=== PATIENT | female | born 1985 | race Caucasian/White ===

== ENCOUNTER 2017-01-29 13:16 | Emergency (ER) | payer OTHER ==
[~2017-01-29] VITALS: Ht 162.6 cm; Wt 55.0 kg
[~2017-01-29 13:16] MED LIST: AUGMENTIN500 MG PO; CLARITIN,ALAVAR10 MG PO; FLEXERIL10 MG PO; FLONASE16 G1 BOTH NARES; GABAPENTIN100 MG PO; LEVAQUIN250 MG PO; LYRICA75 MG PO; MELOXICAM15 MG PO; MOBIC7.5 MG PO; MOTRIN IB200 MG PO; MOTRIN600 MG PO; MOTRIN800 MG PO; MUCINEX D ER T1 EACH PO; Motrin PO; NOHOMEMEDS; NORCO 5/3251 TABLET PO; Natalcare Rx,Pramile PO; PREDNISONE20 MG PO; PRENATAL1 EACH; Percocet 5/325,Endoc PO; TESSALON PERLE100 MG PO; TRAMADOL HCL50 MG PO; ZOFRAN ODT8 MG PO
[2017-01-29 14:34] LABS: HEMATOCRIT 43.9 % (36.0-46.0); MCH 31.7 PG (29.0-34.0); MCHC 34.4 G/DL (30.0-36.0); MCV 92.2 FL (83-99); MEAN PLAT.VOLUME 10.9 uM^3 (9.5-12.4); PLATELET COUNT 227 K/uL (156-360); RBC DIS.WIDTH-SD 40.7 % (39-53); RED BLOOD COUNT 4.76 M/uL (3.80-5.20); WHITE BLOOD COUNT 9.4 K/uL (4.1-10.2)
[2017-01-29 14:44] LABS: CHLORIDE 106 mEq/L (99-109); POTASSIUM 4.1 mEq/L (3.7-5.4); SODIUM 140 mEq/L (136-147)
[2017-01-29 14:46] LABS: GLUCOSE 83 mg/dL (70-99)
[2017-01-29 14:47] LABS: ANION GAP 8 MEQ/L (2-14)
[2017-01-29 14:48] LABS: TOTAL BILIRUBIN 0.5 mg/dL (0.0-1.0)
[2017-01-29 14:49] LABS: ALKALINE PHOSPHATASE 77 IU/L (3-129)
[2017-01-29 14:50] LABS: GFR ESTIMATE (CALCULATED) > 59 mL/min/
[2017-01-29 14:51] LABS: UREA NITROGEN (BUN) 5 mg/dL (9-23)
[2017-01-29 14:53] LABS: LIPASE 9 U/L (1.0-51.0)
[2017-01-29 14:56] LABS: ADD MIUA? YES; BILIRUBIN NEGATIVE; BLOOD MODERATE; COLOR YELLOW ((YELLOW)); GLUCOSE (STRIP) NEGATIVE; KETONES NEGATIVE; LEUKOCYTES NEGATIVE; NITRITE NEGATIVE; PROTEIN (STRIP) NEGATIVE; SPECIFIC GRAVITY 1.012 (1.000-1.030); UROBILINOGEN 0.2 MG/DL (0.2-1.0)
[2017-01-29 14:59] LABS: QUANTITATIVE HCG < 4.0 MIU/ML
[2017-01-29 15:01] LABS: BACTERIA RARE /HPF; EPITHELIAL CELLS 2+ /HPF; MUCUS TRACE /LPF; RED BLOOD CELLS 0-5 /HPF (0-5); UCUL ADDED? NO; WHITE BLOOD CELLS 0-5 /HPF (0-5)
[2017-01-29] MEDS ORDERED: MOTRIN800 MG PO (15:16)
[2017-01-29] MEDS ORDERED: ZOFRAN ODT4 MG PO (15:16)
[2017-01-29 15:32] VITALS: BP 130/84
== END 2017-01-29 15:33 | disposition home or self-care (01) ==
LOC: EME 13:16
DX: R31.9 Hematuria, unspecified (principal); R10.9 Unspecified abdominal pain; R11.2 Nausea with vomiting, unspecified; R51 Headache; R68.83 Chills (without fever); F17.200 Nicotine dependence, unspecified, uncomplicated
CPT/HCPCS: 80053; 81003; 83690; 84702; 85027; 87086; 99281; 99283

== ENCOUNTER 2017-06-26 09:58 | Emergency (ER) | payer SELFPAY ==
[~2017-06-26] VITALS: Ht 162.6 cm; Wt 55.7 kg
[~2017-06-26 09:58] MED LIST changes: +ZOFRAN ODT4 MG PO
[2017-06-26 10:13] VITALS: BP 114/73
[2017-06-26 10:34] LABS: HEMATOCRIT 41.6 % (36.0-46.0); HEMOGLOBIN 14.4 G/DL (11.9-15.5); MCH 32.2 PG (29.0-34.0); MCHC 34.6 G/DL (30.0-36.0); MCV 93.1 FL (83-99); PLATELET COUNT 230 K/uL (156-360); RBC DIS.WIDTH-CV 12.6 % (11.8-14.6); RBC DIS.WIDTH-SD 43.3 % (39-53); RED BLOOD COUNT 4.47 M/uL (3.80-5.20); WHITE BLOOD COUNT 9.4 K/uL (4.1-10.2)
[2017-06-26 10:53] LABS: CHLORIDE 110 mEq/L (99-109); POTASSIUM 3.9 mEq/L (3.7-5.4); SODIUM 139 mEq/L (136-147)
[2017-06-26 10:54] LABS: GLUCOSE 105 mg/dL (70-99)
[2017-06-26 10:58] LABS: CREATININE 0.7 mg/dL (0.6-1.3); GFR ESTIMATE (CALCULATED) > 59 mL/min/
[2017-06-26 10:59] LABS: UREA NITROGEN (BUN) 8 mg/dL (9-23)
== END 2017-06-26 13:09 | disposition left against medical advice (07) ==
LOC: EME 09:58
DX: R05 Cough (principal); R07.9 Chest pain, unspecified; Z53.21 Procedure and treatment not carried out due to patient leaving prior to being seen by health care provider
CPT/HCPCS: 71046; 80048; 85027

== ENCOUNTER 2017-10-16 17:20 | Emergency (ER) | payer SELFPAY ==
[~2017-10-16] VITALS: Ht 162.6 cm; Wt 53.3 kg
[2017-10-16] MEDS ORDERED: AMOXICILLIN500 MG PO (19:03)
[2017-10-16] MEDS ORDERED: NORCO 5/3251 TABLET PO (19:03)
[2017-10-16 19:39] VITALS: BP 125/79
== END 2017-10-16 20:04 | disposition home or self-care (01) ==
LOC: EME 17:20
PROC: 0C96XZZ Drainage of Lower Gingiva, External Approach (ICD-10-PCS; principal; 2017-10-16)
DX: K04.7 Periapical abscess without sinus (principal); J45.909 Unspecified asthma, uncomplicated; F17.200 Nicotine dependence, unspecified, uncomplicated; Z88.8 Allergy status to other drugs, medicaments and biological substances
CPT/HCPCS: 99281; 99283

== ENCOUNTER 2018-01-24 17:06 | Emergency (ER) | payer OTHER ==
[~2018-01-24] VITALS: Ht 162.6 cm; Wt 52.3 kg
[~2018-01-24 17:06] MED LIST changes: +AMOXICILLIN500 MG PO
[2018-01-24 17:22] VITALS: BP 120/79
[2018-01-24 17:32] LABS: HEMATOCRIT 42.1 % (36.0-46.0); HEMOGLOBIN 14.8 G/DL (11.9-15.5); MCH 31.4 PG (29.0-34.0); MCHC 35.2 G/DL (30.0-36.0); MCV 89.4 FL (83-99); PLATELET COUNT 278 K/uL (156-360); RBC DIS.WIDTH-CV 12.8 % (11.8-14.6); RBC DIS.WIDTH-SD 42.3 % (39-53); RED BLOOD COUNT 4.71 M/uL (3.80-5.20)
[2018-01-24 17:42] LABS: CHLORIDE 107 mEq/L (99-109); POTASSIUM 3.7 mEq/L (3.7-5.4); SODIUM 138 mEq/L (136-147)
[2018-01-24 17:44] LABS: GLUCOSE 93 mg/dL (70-99)
[2018-01-24 17:48] LABS: CREATININE 0.7 mg/dL (0.6-1.3); GFR ESTIMATE (CALCULATED) > 59 mL/min/
[2018-01-24 17:49] LABS: UREA NITROGEN (BUN) 8 mg/dL (9-23)
[2018-01-24 17:53] LABS: APPEARANCE CLEAR ((CLEAR)); BILIRUBIN NEGATIVE; BLOOD LARGE; COLOR YELLOW ((YELLOW)); GLUCOSE (STRIP) NEGATIVE; KETONES NEGATIVE; LEUKOCYTES NEGATIVE; NITRITE NEGATIVE; PROTEIN (STRIP) NEGATIVE; SPECIFIC GRAVITY 1.017 (1.000-1.030)
[2018-01-24 17:56] LABS: BACTERIA NONE SEEN /HPF; EPITHELIAL CELLS RARE /HPF; MUCUS TRACE /LPF; RED BLOOD CELLS 0-5 /HPF (0-5); UCUL ADDED? NO; WHITE BLOOD CELLS NONE SEEN /HPF (0-5)
[2018-01-24 18:52] LABS: QUANTITATIVE HCG < 4.0 MIU/ML
== END 2018-01-24 19:39 | disposition home or self-care (01) ==
LOC: EME 17:06
PROVIDERS: Physician Assistant
DX: N93.9 Abnormal uterine and vaginal bleeding, unspecified (principal); Z32.02 Encounter for pregnancy test, result negative; R31.9 Hematuria, unspecified; F17.200 Nicotine dependence, unspecified, uncomplicated
CPT/HCPCS: 76801; 80048; 81003; 84702; 85027; 86850; 86900; 86901; 99281; 99283